=== PATIENT | female | born 1980 | race American Indian/Alaskan Native ===

== ENCOUNTER 2017-11-25 21:37 | Emergency (ER) | payer MEDICAID, OTHER ==
[2017-11-25] MEDS ORDERED: ASPIRIN PO ONE (22:19)
[2017-11-25 22:52] LABS: Basophils % (Auto) 0.6 % (0.0-1.8); Eosinophils # (Auto) 0.1 K/mm3 (0.0-0.4); Eosinophils % (Auto) 1.7 % (0.0-4.3); Hematocrit 27.5 % (30.3-42.9); Hemoglobin 8.4 gm/dl (10.1-14.3); Lymphocytes # (Auto) 2.5 K/mm3 (1.2-5.4); Lymphocytes % (Auto) 31.3 % (13.4-35.0); Mean Corpuscular HGB Conc 30 % (30-34); Mean Corpuscular Volume 79 fl (79-97); Monocytes # (Auto) 0.5 K/mm3 (0.0-0.8); Platelet Count 449 K/mm3 (140-440); Red Blood Count 3.49 M/mm3 (3.65-5.03); Red Cell Distribution Width 16.5 % (13.2-15.2)
[2017-11-25 22:55] LABS: Mean Corpuscular Hemoglobin 24 pg (28-32)
[2017-11-25 23:07] LABS: BUN/Creatinine Ratio 19; Blood Urea Nitrogen 21 mg/dL (7-17); Calcium 8.7 mg/dL (8.4-10.2); Hemolysis Index 0
[2017-11-26 00:29] LABS: Bilirubin,Urine NEG (Negative); Blood,Urine LG (Negative); Color,Urine Yellow (Yellow); HCG Qualitative,Urine Negative (Negative); Mucus,Urine FEW /HPF; Urobilinogen,Urine < 2.0 mg/dL (<2.0)
[2017-11-26] MEDS ORDERED: NACL 0.9% 1000 ML 1,000 ML IV ONE (05:45)
[2017-11-26] MEDS ORDERED: HumuLIN R IV ONE (05:45)
[2017-11-26] MEDS ORDERED: TYLENOL PO ONE (05:46)
--- NOTE | 2017-11-26 05:57 | Emergency Department Report ---
HPI - General Chief Complaint: Chest Pain - HPI HPI: The patient is a 37 yo female with a history of diabetes, gallstones, psychiatric disorder, and whom presents for evaluation of abdominal pain. The patient reports upper abdominal pain for the past 3 weeks, constant, burning in quality, radiating into the chest, and is exacerbated with movement. She states that she has had no pressure-like or pleuritic chest pain whatsoever. She also denies chest pain within the past 8 hours. The patient denies fever, trauma to the chest or abdomen, dyspnea, syncope, parasthesias, cough, hemoptysis, palpitations, dizziness, unilateral leg swelling, calf muscle pain, hematemesis, diarrhea, blood in the stool, dysuria, vaginal discharge, vaginal bleeding, inability to pass flatus or defecate. Patient also denies history of DVT or PE, recent immobilization, or history of cancer. ED Past Medical Hx - Past Medical History Previous Medical History?: Yes Hx Hypertension: Yes Hx Diabetes: Yes Hx Arthritis: Yes Additional medical history: Hypothyroidism, High cholesterol - Surgical History Past Surgical History?: Yes Additional Surgical History: Cataract surgery both eyes - Social History Smoking Status: Never Smoker Substance Use Type: None - Medications Home Medications: Home Medications Medication Instructions Recorded Confirmed Last Taken Type HumaLOG SUB-Q 12/04/14 08/03/15 12/04/14 History HumaLOG Mix 75-25 Vial 10 units DAILY 12/04/14 08/03/15 12/04/14 History Insulin Glargine [Lantus] 30 units SUB-Q HS 12/04/14 08/03/15 12/03/14 History Levothyroxine Sodium 137 mcg PO DAILY 12/04/14 08/03/15 12/04/14 History [Levothyroxine] Losartan/Hydrochlorothiazide 1 tab PO DAILY 12/04/14 08/03/15 12/04/14 History Simvastatin [Zocor] 40 mg PO QDAY 12/04/14 08/03/15 12/04/14 History ED Review of Systems ROS: Stated complaint: CHEST,NECK,STOMACH PAIN,DIZZY Other details as noted in HPI Constitutional: denies: fever ENT: denies: throat or neck pain Respiratory: denies: cough, shortness of breath Cardiovascular: reports: chest pain Endocrine: denies unexplained weight loss or gain Gastrointestinal: reports: abdominal pain, nausea Genitourinary: denies: dysuria Musculoskeletal: denies: leg swelling Skin: denies: rash Neurological: denies: headache Hematological/Lymphatic: denies: easy bleeding or easy bruising Psych: denies sadness or hopelessness Physical Exam - Physical Exam Vital Signs: Vital Signs 11/25/17 11/26/17 11/26/17 22:17 04:22 04:44 Temperature 97.5 F L 97.5 F L Pulse Rate 105 H 95 H Respiratory 17 20 20 Rate Blood Pressure 155/62 Blood Pressure 109/72 [Left] O2 Sat by Pulse 98 98 99 Oximetry Physical Exam: General: well-nourished, well-developed, no acute distress Head: Normocephalic, atraumatic Eyes: normal sclera ENT: Mucous membranes are pale and dry Neck: trachea midline, neck supple, No neck stiffness, no cervical adenopathy Respiratory: Breath sounds equal bilaterally, no wheezing, rales, or rhonchi Cardio: S1 and S2 present, no murmurs, rubs, gallops, capillary refill is delayed Abdomen: Normoactive bowel sounds, soft abdomen, epigastric and LUQ abd pain, no rigidity, no guarding or rebound tenderness Chest WALL/Back: No tenderness to palpation of the chest wall, no CVA tenderness with percussion Musc: No pitting edema Skin: No rash Neuro: no facial drooping, normal speech Psych: Normal affect ED Course Vital Signs 11/25/17 11/26/17 11/26/17 22:17 04:22 04:44 Temperature 97.5 F L 97.5 F L Pulse Rate 105 H 95 H Respiratory 17 20 20 Rate Blood Pressure 155/62 Blood Pressure 109/72 [Left] O2 Sat by Pulse 98 98 99 Oximetry ED Medical Decision Making - Lab Data Result diagrams: 11/25/17 22:37 11/25/17 22:37 - Medical Decision Making The patient was seen and examined by myself. The patient is placed on a director of cardiac rehabilitation and continuous pulse ox. On initial evaluation, the patient was found to be in no distress. EKG was negative for findings suggestive of acute cardiac infarct. Labs and imaging are obtained. Chest x-ray is negative for pneumothorax, focal consolidation, pulmonary vascular congestion, pleural effusion, or other obvious acute cardiopulmonary disease process. Lab results exhibited elevated glucose of greater than 300, with normal anion gap and bicarbonate, not concerning for K. Otherwise labs were unremarkable including normal level of troponin WBC, hemoglobin, hematocrit, electrolytes, renal function, urinalysis, and neg preg test. IV access is established and the patient is given 1 L normal saline fluid bolus and IV insulin for treatment of her hyperglycemia. The patient is given a tablet of Tylenol for her pain. She is informed that as there is a 12yo minor present with her, she will not be able to receive sedating analgesia. As the patient has a DESIREE risk score less than 2, and a well's score less than 2, the patient is at low risk of ACS or pulmonary emboli etiology of their symptoms. The patient was reevaluated and reported that their symptoms were improved. The patient is stable for discharge with outpatient follow-up. The patient is given follow-up and return instructions. The patient expressed understanding and agreed with the plan. The patient is discharged in stable condition. Critical care attestation.: If time is entered above; I have spent that time in minutes in the direct care of this critically ill patient, excluding procedure time. ED Disposition Clinical Impression: Acute hyperglycemia, Epigastric abdominal pain, Acute chest pain, Dehydration Disposition: DC-01 TO HOME OR SELFCARE Is pt being admited?: No Does the pt Need Aspirin: No Condition: Stable Instructions: Chest Pain (ED) Referrals: PHONG ALW MD [Primary Care Provider] - 3-5 Days Time of Disposition: 05:57
--- NOTE | 2017-11-26 05:58 | XRay Report ---
FINAL REPORT EXAM: XR CHEST 1V AP HISTORY: chest pain TECHNIQUE: A portable view of the chest was submitted. FINDINGS: Heart size and mediastinum appear normal for the lungs are clear. Pleural fluid is not seen. The bones and soft tissues reveal obesity. IMPRESSION: No active chest disease.
[2017-11-26 06:27] LABS: Alanine Aminotransferase 14 units/L (7-56); Albumin 3.4 g/dL (3.9-5); Lipase 80 units/L (13-60)
[2017-11-26 06:39] LABS: Bilirubin,Direct < 0.2 mg/dL (0-0.2)
[2017-11-26 10:04] VITALS: BP 122/66
== END 2017-11-26 10:05 | disposition home or self-care (01) ==
LOC: ED 21:37
DX: E86.0 Dehydration (principal); R10.13 Epigastric pain; R07.9 Chest pain, unspecified; E11.65 Type 2 diabetes mellitus with hyperglycemia; M19.90 Unspecified osteoarthritis, unspecified site; E03.9 Hypothyroidism, unspecified; E78.00 Pure hypercholesterolemia, unspecified; Z88.0 Allergy status to penicillin; Z91.040 Latex allergy status
CPT/HCPCS: 36415; 71045; 80048; 80074; 81001; 81025; 82962; 83690; 84484; 85025; 93005; 93010; 96361; 96374; 99284; J7030; J1815

== ENCOUNTER 2021-05-24 06:56 | Emergency (ER) | payer MEDICARE ==
--- NOTE | 2021-05-24 07:40 | Emergency Department Report ---
Minor Respiratory - HPI Chief Complaint: Chest Pain Stated Complaint: CHEST PAINS Time Seen by Provider: 05/24/21 07:35 Duration: 5 Days Pain Location: Chest Severity: mild Minor Respiratory: Yes Able to Tolerate Fluids, Yes Cough, No Rhinorrhea, No Sore Throat, No Ear Pain, No Sick Contacts, No Hemoptysis, No Chest Pain, No Shortness of Breath, No Fever Other History: 40 YO AA COMES TO ER CO COUGH WITH WHITE PHLEGM. SHE HAD NO CP OR SOB. NO FEVER OR CHILLS. NO CHEST PAIN. SHE IS AMBULATORY AND NON ILL APPEARING ON EXAM. HER BS IS NORMAL THIS AM--104 ON ARRIVAL TO ER. BP SLIGHTLY ELEVATED ON ARRIVAL TO TRIAGE. SHE IS IMMUNIZED FOR COVID19 ED Review of Systems ROS: Stated complaint: CHEST PAINS Other details as noted in HPI Comment: All other systems reviewed and negative ED Past Medical Hx - Past Medical History Previous Medical History?: Yes Hx Hypertension: Yes Hx CVA: No Hx Heart Attack/AMI: No Hx Congestive Heart Failure: No Hx Diabetes: Yes Hx Deep Vein Thrombosis: No Hx Pulmonary Embolism: No Hx GERD: Yes Hx Liver Disease: No Hx Renal Disease: No Hx of Cancer: No Hx Sickle Cell Disease: No Hx Arthritis: Yes Hx Headaches / Migraines: No Hx Seizures: No Hx Kidney Stones: No Hx Psychiatric Treatment: No Hx Asthma: No Hx COPD: No Hx Tuberculosis: No Hx Dementia: No Hx HIV: No Additional medical history: Hypothyroidism, High cholesterol - Surgical History Past Surgical History?: Yes Additional Surgical History: Cataract surgery both eyes - Family History Family history: no significant - Social History Smoking Status: Never Smoker Substance Use Type: None - Medications Home Medications: Home Medications Medication Instructions Recorded Confirmed Last Taken Type HumaLOG SUB-Q 12/04/14 08/03/15 12/04/14 History HumaLOG Mix 75-25 Vial 10 units DAILY 12/04/14 08/03/15 12/04/14 History Insulin Glargine [Lantus] 30 units SUB-Q HS 12/04/14 08/03/15 12/03/14 History Levothyroxine Sodium 137 mcg PO DAILY 12/04/14 08/03/15 12/04/14 History [Levothyroxine] Losartan/Hydrochlorothiazide 1 tab PO DAILY 12/04/14 08/03/15 12/04/14 History Simvastatin (NF) [Zocor] 40 mg PO QDAY 12/04/14 08/03/15 12/04/14 History Benzonatate [Tessalon Perles] 100 mg PO Q12H PRN #20 capsule 05/24/21 Unknown Rx Fluticasone [Flonase] 1 spray NS QDAY #1 bottle 05/24/21 Unknown Rx Minor Respiratory Exam - Exam General: Vital signs noted. No distress. Alert and acting appropriately. HEENT: Yes Moist Mucous Membranes, No Pharyngeal Erythema, No Pharyngeal Exudates, No Rhinorrhea, No Conjuctival Injection, No Frontal Tenderness, No Maxillary Tenderness Ear: Neither TM Bulge, Neither TM Erythema, Neither EAC Pain, Neither EAC Discharge Neck: Yes Supple, No Adenopathy Lungs: Yes Good Air Exchange, No Wheezes, No Ronchi, No Stridor, No Cough, No Labored Respirations, No Retractions, No Use of Accessory Muscles, No Other Abnormal Lung Sounds Heart: Yes Regular, No Murmur Abdomen: Yes Normal Bowel Sounds, No Tenderness, No Peritoneal Signs Skin: No Rash, No Edema Neurologic: Alert and oriented, no deficits. Musculoskeletal: Unremarkable. ED Course Vital Signs 05/24/21 07:14 Temperature 98.2 F Pulse Rate 86 Respiratory 16 Rate Blood Pressure 198/103 [Left] O2 Sat by Pulse 100 Oximetry - Reevaluation(s) Reevaluation #1: 05/24/21 15:16 HOME MEDS LOSARTAN NOVALOG HUMALOG LANTUS PPI NAPROSY STATIN SYNTHROID LORATADINE PAYTON METFORMIN FARZA ED Medical Decision Making - Radiology Data Radiology results: report reviewed, image reviewed NAP - Medical Decision Making XRAY NAP PT WITHOUT FEVER/TACHYCARDIA/HYPOTENSION OR HYPERGLYCEMIA SHE IS AMBULATORY, NON TOXIC AND NON ILL APPEARING TAKING PO Vital Signs 05/24/21 05/24/21 05/24/21 07:14 08:07 09:44 Temperature 98.2 F 98.6 F Pulse Rate 86 84 82 Respiratory 16 18 Rate Blood Pressure 170/87 176/95 Blood Pressure 198/103 [Left] O2 Sat by Pulse 100 99 Oximetry PT WAS CONCERNED SHE MAY HAVE COVID DESPITE IMMUNIZATION. PT EDUCATED ON X RAY FINDINGS. DC HOME WITH DC PLAN OF CARE INCLUDING FOLLOW UP, MEDS, DIET AND ACTIVITY - SHE VERBLIZES UNDERSTANDING OF PLAN OF CARE - Differential Diagnosis ro pna/uri/allergies/bronchitis Critical care attestation.: If time is entered above; I have spent that time in minutes in the direct care of this critically ill patient, excluding procedure time. ED Disposition Clinical Impression: Viral respiratory illness, Hypertension Disposition: 01 HOME / SELF CARE / HOMELESS Is pt being admited?: No Does the pt Need Aspirin: No Condition: Stable Instructions: Viral Respiratory Infection, [id number], Hypertension (ED) Additional Instructions: no pna/evidence of covid over the counter sign and symptom relief follow up with pcp in 48 hours for reevaluation continue home meds monitor blood sugar Prescriptions: Fluticasone [Flonase] 1 spray NS QDAY #1 bottle Benzonatate [Tessalon Perles] 100 mg PO Q12H PRN #20 capsule PRN Reason: Cough Referrals: PATRICA TRACY MD [Staff Physician] - 3-5 Days Time of Disposition: 09:20
[2021-05-24] MEDS ORDERED: amLODIPine 5 MG TAB PO ONE (07:49)
--- NOTE | 2021-05-24 08:07 | XRay Report ---
CHEST 2 VIEWS INDICATION: cough, chest pain. COMPARISON: 11/26/2017 FINDINGS: Support devices: None. Heart: Within normal limits. Lungs/pleura: No acute air space or interstitial disease. No pneumothorax. Additional findings: None. IMPRESSION: Normal chest x-ray Signer Name: Mario Mock Jr, MD Signed: 05/24/2021 8:02 AM Workstation Name: [id number]
[2021-05-24 09:46] VITALS: BP 176/95
== END 2021-05-24 10:21 | disposition home or self-care (01) ==
LOC: ED 06:56
DX: B34.9 Viral infection, unspecified (principal); I10 Essential (primary) hypertension; E11.8 Type 2 diabetes mellitus with unspecified complications; K21.9 Gastro-esophageal reflux disease without esophagitis; E03.9 Hypothyroidism, unspecified; E78.00 Pure hypercholesterolemia, unspecified; Z98.890 Other specified postprocedural states
CPT/HCPCS: 71046; 99283